=== PATIENT | female | born 2000 | race African-American/Black ===

== ENCOUNTER 2024-09-25 16:03 | Emergency (ER) | payer OTHER ==
[~2024-09-25 16:03] MED LIST: BENZONATATE100 MG PO; ONDANSETRON ODT4 MG PO; TAMIFLU6 MG/1 ML PO
[2024-09-25 16:08] VITALS: TEMP 98.6
[2024-09-25] MEDS ORDERED: CEPHALEXIN500 MG PO (16:16)
[2024-09-25] MEDS: TETANUS/DIPHTHERIA TOX ADULT 0.5 ML SYR IM ONE (16:27)
[2024-09-25 16:46] VITALS: PULSE 113; RESP 20; O2SAT 99
[2024-09-25] MEDS ORDERED: BACITRACIN ZINC 0.9GM TP ONE (16:48)
== END 2024-09-25 16:58 | disposition home or self-care (01) ==
LOC: FSED 16:09
DX: S61.512A Laceration without foreign body of left wrist, initial encounter (principal); S61.511A Laceration without foreign body of right wrist, initial encounter; W25.XXXA Contact with sharp glass, initial encounter; Y92.89 Other specified places as the place of occurrence of the external cause; I10 Essential (primary) hypertension
CPT/HCPCS: 90471; 90714; 99284

== ENCOUNTER 2024-10-04 14:55 | Emergency (ER) | payer OTHER ==
[~2024-10-04] VITALS: Ht 154.9 cm; Wt 114.8 kg
[~2024-10-04 14:55] MED LIST changes: +CEPHALEXIN500 MG PO
[2024-10-04 15:03] VITALS: PULSE 76; RESP 16; TEMP 98.3; O2SAT 99
== END 2024-10-04 15:17 | disposition home or self-care (01) ==
LOC: FSED 14:58
DX: Z48.02 Encounter for removal of sutures (principal)
CPT/HCPCS: 99282; S0630

== ENCOUNTER 2024-10-26 18:20 | Emergency (ER) | payer OTHER ==
[~2024-10-26] VITALS: Ht 154.9 cm; Wt 113.5 kg
[2024-10-26 18:46] VITALS: TEMP 99.7
[2024-10-26] MEDS ORDERED: TAMIFLU75 MG PO (19:34)
[2024-10-26] MEDS ORDERED: IBUPROFEN800 MG PO (19:34)
[2024-10-26] MEDS: FAMOTIDINE 20 MG/2 ML VIAL IV STA (20:17)
[2024-10-26] MEDS: LACTATED RINGER'S 1,000 ML INJ ONE (20:18)
[2024-10-26] MEDS: ONDANSETRON HCL INJ 2MG/ML 2ML 2 MG/ML VIAL IV STA (20:18)
[2024-10-26] MEDS: KETOROLAC TROMETHAMINE 30 MG/ML VIAL IV STA (20:19)
[2024-10-26 21:16] VITALS: PULSE 104; RESP 18
[2024-10-26 22:22] VITALS: BP 134/82; TEMP 99.7; O2SAT 98
== END 2024-10-26 21:25 | disposition home or self-care (01) ==
LOC: FSED 18:23
DX: R50.9 Fever, unspecified (principal); J10.1 Influenza due to other identified influenza virus with other respiratory manifestations; R05.9 Cough, unspecified; R51.9 Headache, unspecified; F17.210 Nicotine dependence, cigarettes, uncomplicated
CPT/HCPCS: 0223U; 83518; 87400; 99284; J1885; J2405